=== PATIENT | male | born 1990 | race Caucasian/White ===

== ENCOUNTER 2020-08-08 08:28 | Outpatient (REF) | payer OTHER, SELFPAY | END 2020-08-08 08:29 | disposition home or self-care (01) | LOC: HO.LAB 08:28 | PROVIDERS: Visit Provider Internal Medicine | DX: Z20.828 Contact with and (suspected) exposure to other viral communicable diseases (principal) | CPT/HCPCS: C9803; U0003 ==

== ENCOUNTER 2021-04-30 07:02 | Emergency (ER) | payer OTHER, SELFPAY ==
[2021-04-30 07:15] VITALS: BP 144/77; PULSE 63; RESP 16; TEMP 36.1; O2SAT 98; BMI 25.2
--- NOTE | 2021-04-30 07:46 | ED_ITS ---
HPI - Wound/Laceration General Chief Complaint: Wound/Laceration Stated Complaint: lt hand laceration Time Seen by Provider: 04/30/21 07:34 Source: patient Mode of arrival: ambulatory Limitations: no limitations History of Present Illness HPI narrative: This is a 50 years old male presented to the ED with the laceration on the left hand, he states that was doing renovation in the house and cut himself with mirrow Onset (ago): hour(s) (1) Location: other (left hand) Place: home Patient tetanus UTD: No Context: accidental Associated symptoms: none Related Data Allergies Allergy/AdvReac Type Severity Reaction Status Date / Time SEASONAL ALLERGIES Allergy Unknown ITCHY EYES Uncoded 05/19/20 19:31 Review of Systems Review of Systems: Yes all other systems are reviewed and are negative Constitutional: Constitutional: Reports no additional constitutional complaints Cardiovascular: Cardiovascular: Reports no additional cardiovascular complaints Respiratory: Respiratory: Reports no additional respiratory complaints Gastrointestinal: Gastrointestinal: Reports no additional gastrointestinal complaints Neurologic: Reports system reviewed and no additional complaints, except as documented PMFSH Past Medical History Attestation statement: The following information was validated with the patient. Social History Social History Advance Directives: No Advance Directives Information Provided: No Physical Exam Vital Signs: Vital Signs: Last Vital Signs Temp 97 F 04/30/21 07:15 Pulse 63 04/30/21 07:15 Resp 16 04/30/21 07:15 BP 144/77 H 04/30/21 07:15 Pulse Ox 98 04/30/21 07:15 Body Mass Index 25.2 Const: General: cooperative and healthy appearing Orientation/consciousness: oriented to person, oriented to place, oriented to time and patient oriented x3 HENMT: Other: wnl Neck: Neck: Yes normal visual inspection and Yes full ROM Chest: Chest palpation & inspection: normal inspection of the chest Resp: Effort & Inspection: normal respiratory effort and able to speak in complete sentences Auscultation: clear to auscultation bilaterally Cardio: Jugular venous distension: no JVD Rate: regular rate Rhythm: reg ular rhythm GI: Inspection: Yes normal to inspection Palpation (GI): Soft to palpation, not firm, nontender, no guarding and not rigid Neuro: Other: Examination of the left tender shows a 3 cm laceration in the left ulnar aspect,full ROM,no deficit General: oriented to person, oriented to place, oriented to time and patient oriented x3 Cranial nerves: Yes CN's II- XII intact bilaterally Cognition (Neuro): normal cognition Extrem: Other: There is a 3 cm laceration in the left hand localized in the ulnar aspect, he has full range of motion and he has no deficit in strength or sensation the wound appear clean superficial Procedures Laceration Laceration 1: Site: hand Side (If applicable): left Size (cm): 3 Description: linear Depth: simple, single layer Local Anesthetic: lidocaine 1% Amount of anesthesia used (mL): 1 Pre-repair: wound explored Skin layer closed with: nylon Size (cm): 4-0 Number of sutures: 3 Technique: simple, interrupted Technique: simple, interrupted Tendon layer closed with: nylon Discharge Plan Discharge Clinical Impression: Laceration, Laceration of hand Patient Disposition: Home, Self-Care Instructions: Laceration (ED) Additional Instructions: This stitches need to come out in about 7-10 days you could either go to you see your primary care physician or return to the ED Referrals: Jean Marie Romero MD [Primary Care Provider] - 10 days Interventions: ED Discharge Assessment Last Done: 04/30/21 08:24 Discharge Date/Time: 04/30/21 08:25
[2021-04-30] MEDS: Lidocaine HCl 1 % MPF 5 ML VIAL SUBCUT (08:15)
[2021-04-30] MEDS: Diphth,Pertus(ACell),Tet Adult 0.5 ML SYRINGE IM (08:16)
== END 2021-04-30 08:25 | disposition home or self-care (01) ==
PROVIDERS: Emergency Provider Emergency Medicine; PCP Internal Medicine
DX: S61.412A Laceration without foreign body of left hand, initial encounter (principal); M79.642 Pain in left hand; Y28.9XXA Contact with unspecified sharp object, undetermined intent, initial encounter; Y93.9 Activity, unspecified; Y92.9 Unspecified place or not applicable; Y99.9 Unspecified external cause status
CPT/HCPCS: 12002; 90471; 90715; 99283; 99284

== ENCOUNTER 2022-10-20 22:21 | Observation (INO) | payer OTHER, SELFPAY ==
--- NOTE | ~2022-10-20 | CT_ITS ---
EXAMINATION: CT ANGIOGRAM CHEST CLINICAL INFORMATION: Mid chest pain. Elevated troponin. COMPARISON: None TECHNIQUE: Multiple axial images were obtained through the chest after the administration of 65 mL of Omnipaque 350 intravenous contrast. Extensive vascular post-processing including two-dimensional and three-dimensional reformatted images were created and reviewed on an independent workstation. This CT examination was performed using dose optimization techniques as appropriate, variously including the following: *Automated exposure control *Adjustment of mA and/or kV according to patient size (this includes techniques or standardized protocols for targeted exams where dose is matched to indication/reason for exam; i.e. extremities or head) *Use of iterative reconstruction technique DLP: 340 mGy-cm FINDINGS: Vascular: 1. Normal caliber ascending thoracic aorta. No dissection. Motion limits evaluation of the coronary arteries. There is likely normal origin. 2. Normal caliber aortic arch without dissection. 3 vessel branching configuration. 3. Normal caliber descending thoracic aorta. No dissection. 4. The visualized abdominal aorta is normal. Normal appearance of the celiac axis and superior mesenteric artery. The renal arteries are patent. 5. Although not tailored for evaluation of the pulmonary arteries, no central or lobar pulmonary embolism. Nonvascular: The central airways are patent. Dependent atelectasis. No dense consolidation. No pleural effusion or pneumothorax. No pulmonary nodules. Normal heart size. No pericardial effusion. No mediastinal lymphadenopathy. Normal thyroid gland. No axillary lymphadenopathy or chest wall mass. The visualized portion of the upper abdomen shows no acute abnormality. No acute or suspicious osseous abnormality. CT/CT angio chest aorta IMPRESSION: 1. No acute vascular abnormality. No dissection. 2. No acute pulmonary finding. Fleischner guidelines were followed.
[2022-10-20 22:25] VITALS: BP 138/79; PULSE 84; RESP 16; TEMP 37.1; O2SAT 98; BMI 28.4
--- NOTE | 2022-10-20 22:30 | ECG_ITS ---
Test Reason : chest pain Blood Pressure : / mmHG Vent. Rate : 071 BPM Atrial Rate : 071 BPM P-R Int : 152 ms QRS Dur : 088 ms QT Int : 368 ms P-R-T Axes : 051 030 059 degrees QTc Int : 399 ms Normal sinus rhythm Normal ECG No previous ECGs available Referred By: Generic ED Physician Electronically Signed By:Bruce Hernandez
[2022-10-20 22:48] LABS: MANUAL DIFF FLAG NO
[2022-10-20 22:49] LABS: Basophils Percent Auto 0.1 % (0-2); Eosinophils Absolute Auto 0.1 X10*3/uL (0.0-0.4); Eosinophils Percent Auto 0.9 % (0-4); Hematocrit 40.8 % (42.0-52.0); Imm Gran Abs Auto 0.03 X10*3/uL (0.00-0.03); Imm Gran Pct Auto 0.3 % (0.0-0.4); Lymphocytes Absolute Auto 1.6 X10*3/uL (1.2-4.9); Lymphocytes Percent Auto 17.3 % (20-40); Mean Corpuscular HGB Conc 34.3 g/dl (31.0-36.0); Mean Corpuscular Hemoglobin 29.5 pg (27.0-33.0); Mean Corpuscular Volume 86.1 fL (80.0-98.0); Mean Platelet Volume 9.6 fL (9.4-12.4); Monocytes Absolute Auto 1.1 X10*3/uL (0.1-1.2); Monocytes Percent Auto 12.2 % (2-11); Neutrophils Absolute Auto 6.4 x10*3/uL (2.0-8.3); Neutrophils Percent Auto 69.2 % (45-73); Platelet Count 269 X10*3/uL (160-400); Red Blood Count 4.74 X10*6/uL (4.60-5.80); Red Cell Distribution Width 12.2 % (11.0-16.0); White Blood Count 9.2 X10*3/uL (4.8-10.8)
[2022-10-20 23:03] LABS: Anion Gap 16 (12-20); Blood Urea Nitrogen 13 mg/dL (9-16); Carbon Dioxide 26 mmol/L (22-29); Chloride 100 mmol/L (96-108); Creatinine Clr Calc Pharmacy 126.5; Estimated Glomerular Filt Rate > 60; Glucose Random 113 mg/dL (60-115); Potassium 4.5 mmol/L (3.3-5.1); Sodium 137 mmol/L (135-145)
--- NOTE | 2022-10-20 23:04 | ED_ITS ---
HPI - Chest Pain General Chief Complaint: Chest Pain Stated Complaint: chest pain Time Seen by Provider: 10/20/22 22:51 Source: patient Mode of arrival: ambulatory Limitations: no limitations History of Present Illness HPI narrative: Patient is 31 years old with no significant past medical history nonsmoker been sick with nausea vomiting for last few days vomited 2 times yesterday time went to bed woke up in sleep at 01:00 with sharp chest pain in mid chest lasted for an hour or so then went to bed no shortness of breath no diaphoresis no abdominal pain again at 19:00 patient noticed similar sharp pain localized in midsternum increases on deep breaths and lying flat, on arrival patient's blood pressure was 138/79 pulse rate 84 saturating 98% on room air EKG was normal sinus rhythm, normal EKG no significant family history of coronary artery disease Related Data Allergies Allergy/AdvReac Type Severity Reaction Status Date / Time SEASONAL ALLERGIES Allergy Unknown ITCHY EYES Uncoded 10/21/22 02:39 Review of Systems Review of Systems: Yes all other systems are reviewed and are negative [facility] Social History Social History Patient Tobacco Use Status: Never used Tobacco Smoked in Last 30 Days: No Use of substances other than those prescribed or required for medical reasons: No Advance Directives: No Advance Directives Information Provided: No Nutrition Risks: No Nutritional Risk Physical Exam Vital Signs: Vital Signs: Last Vital Signs Temp 97.9 F 10/21/22 06:21 Pulse 63 10/21/22 06:21 Resp 18 10/21/22 06:21 BP 103/62 10/21/22 06:21 Pulse Ox 96 10/21/22 06:21 O2 Del Method 10/21/22 06:21 BMI result Body Mass Index 28.4 Appearance: Alert. Oriented X3. No acute distress. Eyes: No pallor or icterus ENT: Pharynx normal. Oral Mucosa moist Neck: Normal inspection. Neck supple. CVS: Normal heart rate and rhythm. Pulses normal. No pericardial rub Respiratory: No respiratory distress. Equal air entry bilateral, no wheezing/rales/rhonchi Abdomen: Soft and nontender. Bowel sounds are present, no mass palpable, no CVA tenderness Skin: Skin warm and dry. Normal skin color. Normal skin turgor. Extremities: No lower extremity edema. No calf tenderness Neuro: Oriented X 3. No motor deficit. No sensory deficit.No cerebellar signs , cranial nerves II-XII intact Medications Administered Generic Name Dose Route Start Last Admin Trade Name Alyse PRN Reason Stop Dose Admin Enoxaparin Sodium 40 mg 10/21/22 02:45 10/21/22 03:03 Enoxaparin Sodium 40 Mg/0.4 Ml Syringe SUBCUT Not Given DAILY@0600 KARELY Ibuprofen 600 mg 10/21/22 02:45 10/21/22 03:02 Ibuprofen 600 Mg Tablet PO 600 mg Q8H [facility] Administration Discontinued Medications Generic Name Dose Route Start Last Admin Trade Name Alyse PRN Reason Stop Dose Admin Al Hydroxide/Mg Hydroxide 30 ml 10/20/22 23:05 10/20/22 23:24 Magnesium Hydrox/Alum Hydrox 30 Ml Oral.Susp PO 10/20/22 23:06 30 ml ONCE ONE Administration Colchicine 0.6 mg 10/21/22 01:51 10/21/22 02:36 Colchicine 0.6 Mg Tablet PO 10/21/22 01:52 0.6 mg ONCE ONE Administration Colchicine 0.6 mg 10/21/22 02:42 10/21/22 03:51 Colchicine 0.6 Mg Tablet PO 10/21/22 02:43 0.6 mg ONCE ONE Administration Iohexol 65 ml 10/21/22 00:31 10/21/22 00:41 Iohexol 350 Mg/Ml 100 Ml Infus..Btl IV 10/21/22 00:32 65 ml ONCE ONE Administration Ketorolac Tromethamine 30 mg 10/21/22 01:51 10/21/22 02:18 Ketorolac Tromethamine 30 Mg/Ml Vial IVPUSH 10/21/22 01:52 30 mg ONCE ONE Administration Lidocaine HCl 15 ml 10/20/22 23:05 10/20/22 23:24 Lidocaine Hcl Viscous 2 % 15 Ml Solution MUCOUS MEM 10/20/22 23:06 15 ml ONCE ONE Administration Nitroglycerin 0.5 inch 10/21/22 00:17 10/21/22 00:23 Nitroglycerin 2 % Oint 1 Gm Packet TRANSDERMA 10/21/22 00:18 0.5 inch ONCE ONE Administration Medical Decision Making Medical Decision Making MDM Narrative: Patient's heart score of 0 / NM depression atypical chest pain clinically pericardial myocarditis. Lab workup showed significant elevation of high sensitive troponin to 1341 patient chest pain get worse on lying flat gets better on sitting likely pericarditis/myocarditis l. Will do CT chest to rule out any vascular problem/esophageal rupture . [address] Hernandez agreed for treating patient has pericarditis/myocarditis and sent and colchicine will be seen in the a.m. no need to transfer patient to [facility] said Differential Diagnosis Pericarditis/myocarditis/non-STEMI/esophageal rupture/aortic dissection/AMI Consult Healthcare Provider Management of the patient was discussed with: Hospitalist Lab Data [facility] Lab Attestation statement: I reviewed the patient's lab results. 10/20/22 22:41 10/20/22 22:41 Labs: Lab Results 10/20/22 10/20/22 10/20/22 Range/Units 22:41 22:41 22:41 WBC 9.2 (4.8-10.8) X10*3/uL RBC 4.74 (4.60-5.80) X10*6/uL Hgb 14.0 (14.0-18.0) g/dl Hct 40.8 L (42.0-52.0) % MCV 86.1 (80.0-98.0) fL MCH 29.5 (27.0-33.0) pg MCHC 34.3 (31.0-36.0) g/dl RDW 12.2 (11.0-16.0) % Plt Count 269 (160-400) X10*3/uL MPV 9.6 (9.4-12.4) fL Immature Gran % (Auto) 0.3 (0.0-0.4) % Neut % (Auto) 69.2 (45-73) % Lymph % (Auto) 17.3 L (20-40) % Gove % (Auto) 12.2 H (2-11) % Eos % (Auto) 0.9 (0-4) % Baso % (Auto) 0.1 (0-2) % Lymph # (Auto) 1.6 (1.2-4.9) X10*3/uL Gove # (Auto) 1.1 (0.1-1.2) X10*3/uL Eos # (Auto) 0.1 (0.0-0.4) X10*3/uL Baso # (Auto) 0.0 (0.0-0.2) X10*3/uL Abs Immat Gran (auto) 0.03 (0.00-0.03) X10*3/uL Absolute Neuts (auto) 6.4 (2.0-8.3) x10*3/uL Absolute Nucleated RBC 0.000 (0.0-0.012) X10*3/uL Nucleated RBC % (auto) 0.0 (0.0-0.2) /100WBC ESR (0-15) MM/HR PT (10.0-13.1) SEC INR (0.9-1.1) APTT (26.0-36.4) SEC Sodium 137 (135-145) mmol/L Potassium 4.5 (3.3-5.1) mmol/L Chloride 100 (96-108) mmol/L Carbon Dioxide 26 (22-29) mmol/L Anion Gap 16 (12-20) BUN 13 (9-16) mg/dL Creatinine 0.84 (0.5-1.4) mg/dL Estim Creat Clear Calc 126.5 Estimated GFR > 60 Random Glucose 113 (60-115) mg/dL Calcium 9.0 (8.4-10.2) mg/dL Total Creatine Kinase 206 H (38-174) U/L Troponin I High Sens 1341.0 H* (<3.5-35.0) ng/L C-Reactive Protein 9.52 H (< or = 0.50) mg/dL Urine Color Urine Appearance Urine pH (5.0-9.0) Ur Specific Pateros (1.005-1.025) Urine Protein (Neg-Trace) mg/dL Urine Glucose (UA) (Negative) mg/dL Urine Ketones (Negative) mg/dL Urine Blood (Negative) Urine Nitrite (Negative) Ur Leukocyte Esterase (Negative) Urine RBC (0-2) /HPF Urine WBC (0-5) /HPF Ur Squamous Epith Cells (0-2) /HPF Urine Bacteria (None Seen) Hyaline Casts (0-2) /LPF Urine Opiates Screen (Not Detect) Urine Fentanyl Screen (Not Detect) Ur Barbiturates Screen (Not Detect) Ur Phencyclidine Scrn (Not Detect) Ur Amphetamines Screen (Not Detect) U Benzodiazepines Scrn (Not Detect) Urine Cocaine Screen (Not Detect) U Marijuana (THC) Screen (Not Detect) Influenza Type A (PCR) (Negative) Influenza Type B (PCR) (Negative) RSV RNA Qual (PCR) (Negative) SARS-CoV-2 RNA (RT-PCR) (Negative) 10/20/22 10/20/22 10/20/22 Range/Units 22:41 22:41 23:34 WBC (4.8-10.8) X10*3/uL RBC (4.60-5.80) X10*6/uL Hgb (14.0-18.0) g/dl Hct (42.0-52.0) % MCV (80.0-98.0) fL MCH (27.0-33.0) pg MCHC (31.0-36.0) g/dl RDW (11.0-16.0) % Plt Count (160-400) X10*3/uL MPV (9.4-12.4) fL Immature Gran % (Auto) (0.0-0.4) % Neut % (Auto) (45-73) % Lymph % (Auto) (20-40) % Gove % (Auto) (2-11) % Eos % (Auto) (0-4) % Baso % (Auto) (0-2) % Lymph # (Auto) (1.2-4.9) X10*3/uL Gove # (Auto) (0.1-1.2) X10*3/uL Eos # (Auto) (0.0-0.4) X10*3/uL Baso # (Auto) (0.0-0.2) X10*3/uL Abs Immat Gran (auto) (0.00-0.03) X10*3/uL Absolute Neuts (auto) (2.0-8.3) x10*3/uL Absolute Nucleated RBC (0.0-0.012) X10*3/uL Nucleated RBC % (auto) (0.0-0.2) /100WBC ESR 13 (0-15) MM/HR PT 13.0 (10.0-13.1) SEC INR 1.1 (0.9-1.1) APTT 33.4 (26.0-36.4) SEC Sodium (135-145) mmol/L Potassium (3.3-5.1) mmol/L Chloride (96-108) mmol/L Carbon Dioxide (22-29) mmol/L Anion Gap (12-20) BUN (9-16) mg/dL Creatinine (0.5-1.4) mg/dL Estim Creat Clear Calc Estimated GFR Random Glucose (60-115) mg/dL Calcium (8.4-10.2) mg/dL Total Creatine Kinase (38-174) U/L Troponin I High Sens (<3.5-35.0) ng/L C-Reactive Protein (< or = 0.50) mg/dL Urine Color Urine Appearance Urine pH (5.0-9.0) Ur Specific Pateros (1.005-1.025) Urine Protein (Neg-Trace) mg/dL Urine Glucose (UA) (Negative) mg/dL Urine Ketones (Negative) mg/dL Urine Blood (Negative) Urine Nitrite (Negative) Ur Leukocyte Esterase (Negative) Urine RBC (0-2) /HPF Urine WBC (0-5) /HPF Ur Squamous Epith Cells (0-2) /HPF Urine Bacteria (None Seen) Hyaline Casts (0-2) /LPF Urine Opiates Screen (Not Detect) Urine Fentanyl Screen (Not Detect) Ur Barbiturates Screen (Not Detect) Ur Phencyclidine Scrn (Not Detect) Ur Amphetamines Screen (Not Detect) U Benzodiazepines Scrn (Not Detect) Urine Cocaine Screen (Not Detect) U Marijuana (THC) Screen (Not Detect) Influenza Type A (PCR) NEGATIVE (Negative) Influenza Type B (PCR) NEGATIVE (Negative) RSV RNA Qual (PCR) NEGATIVE (Negative) SARS-CoV-2 RNA (RT-PCR) NEGATIVE (Negative) 10/20/22 10/21/22 10/21/22 Range/Units 23:42 00:27 00:28 WBC (4.8-10.8) X10*3/uL RBC (4.60-5.80) X10*6/uL Hgb (14.0-18.0) g/dl Hct (42.0-52.0) % MCV (80.0-98.0) fL MCH (27.0-33.0) pg MCHC (31.0-36.0) g/dl RDW (11.0-16.0) % Plt Count (160-400) X10*3/uL MPV (9.4-12.4) fL Immature Gran % (Auto) (0.0-0.4) % Neut % (Auto) (45-73) % Lymph % (Auto) (20-40) % Gove % (Auto) (2-11) % Eos % (Auto) (0-4) % Baso % (Auto) (0-2) % Lymph # (Auto) (1.2-4.9) X10*3/uL Gove # (Auto) (0.1-1.2) X10*3/uL Eos # (Auto) (0.0-0.4) X10*3/uL Baso # (Auto) (0.0-0.2) X10*3/uL Abs Immat Gran (auto) (0.00-0.03) X10*3/uL Absolute Neuts (auto) (2.0-8.3) x10*3/uL Absolute Nucleated RBC (0.0-0.012) X10*3/uL Nucleated RBC % (auto) (0.0-0.2) /100WBC ESR (0-15) MM/HR PT (10.0-13.1) SEC INR (0.9-1.1) APTT (26.0-36.4) SEC Sodium (135-145) mmol/L Potassium (3.3-5.1) mmol/L Chloride (96-108) mmol/L Carbon Dioxide (22-29) mmol/L Anion Gap (12-20) BUN (9-16) mg/dL Creatinine (0.5-1.4) mg/dL Estim Creat Clear Calc Estimated GFR Random Glucose (60-115) mg/dL Calcium (8.4-10.2) mg/dL Total Creatine Kinase (38-174) U/L Troponin I High Sens 2047.0 H* D (<3.5-35.0) ng/L C-Reactive Protein (< or = 0.50) mg/dL Urine Color Dark Yellow Urine Appearance Clear Urine pH 6.5 (5.0-9.0) Ur Specific Pateros >= 1.030 H (1.005-1.025) Urine Protein 30 (1+) H (Neg-Trace) mg/dL Urine Glucose (UA) Negative (Negative) mg/dL Urine Ketones 15 (Negative) mg/dL Urine Blood Negative (Negative) Urine Nitrite Negative (Negative) Ur Leukocyte Esterase Negative (Negative) Urine RBC 11-20 H (0-2) /HPF Urine WBC 0-5 (0-5) /HPF Ur Squamous Epith Cells 0-2 (0-2) /HPF Urine Bacteria None Seen (None Seen) Hyaline Casts 0-2 (0-2) /LPF Urine Opiates Screen Not Detected (Not Detect) Urine Fentanyl Screen Not Detected (Not Detect) Ur Barbiturates Screen Not Detected (Not Detect) Ur Phencyclidine Scrn Not Detected (Not Detect) Ur Amphetamines Screen Not Detected (Not Detect) U Benzodiazepines Scrn Not Detected (Not Detect) Urine Cocaine Screen Not Detected (Not Detect) U Marijuana (THC) Screen POSITIVE H (Not Detect) Influenza Type A (PCR) (Negative) Influenza Type B (PCR) (Negative) RSV RNA Qual (PCR) (Negative) SARS-CoV-2 RNA (RT-PCR) (Negative) Independent Interpretation I performed an independent interpretation of an: EKG Interpretation: Normal sinus rhythm heart rate 71 beats per minute normal interval normal axis slight depression of NM interval in lead 2 and elevation in AVR no acute ST changes impression normal EKG Discharge Plan Discharge Clinical Impression: Pericarditis, Myocarditis Patient Disposition: Admitted As Inpatient
[2022-10-20] MEDS: Lidocaine HCl Viscous 2 % 15 ML SOLUTION MUCOUS MEM (23:24)
[2022-10-20] MEDS: Magnesium Hydrox/Alum Hydrox 30 ML ORAL.SUSP PO (23:24)
[2022-10-20 23:27] LABS: Influenza A PCR NEGATIVE (Negative); Influenza B PCR NEGATIVE (Negative); Resp Syncy Virus RNA Qual PCR NEGATIVE (Negative); SARS COV2 PCR INHOUSE NEGATIVE (Negative)
[2022-10-20 23:57] LABS: INTERNATIONAL NORM RATIO 1.1 (0.9-1.1)
[2022-10-20 23:59] LABS: Partial Thromboplastin Time 33.4 SEC (26.0-36.4)
[2022-10-21] VITALS (9 sets, daily range): BP systolic 102–140; BP diastolic 60–88; PULSE 54–81; RESP 12–21; TEMP 36.6–37.4; O2SAT 96–98
--- NOTE | 2022-10-21 | MHC.EDTECH ---
this pct assumed care of pt at 2300 ,vitals sign taken ,pt father at bedside .
[2022-10-21] MEDS: Nitroglycerin 2 % Oint 1 GM Packet 0.5 INCH TRANSDERMA (00:23)
--- NOTE | 2022-10-21 00:29 | MHC.EDTECH ---
pt urine sample collected and sent to lab .
[2022-10-21 00:34] LABS: Appearance Urine Clear; Color Urine Dark Yellow; Glucose Urine UA Negative (Negative); Leukocyte Esterase Urine Negative (Negative); Nitrite Urine Negative (Negative); PH 6.5 (5.0-9.0); Specific Gravity - Urine >= 1.030 (1.005-1.025); UMIC TRIGGER UACC YES; Urine Blood Negative (Negative); Urine Ketones 15 mg/dL (Negative); Urine Protein 30 (1+) mg/dL (Neg-Trace)
[2022-10-21 00:36] LABS: C Reactive Protein 9.52 mg/dL (< or = 0.50)
[2022-10-21] MEDS: iohexoL 350 MG/ML 100 ML INFUS..BTL 65 ML IV (00:41)
[2022-10-21 00:44] LABS: Amphetamine Screen Urine Not Detected (Not Detect); Barbiturates, Urine Not Detected (Not Detect); Benzodiazepines Screen Urine Not Detected (Not Detect); Cannabinoid Screen Urine POSITIVE (Not Detect); Cocaine Screen Urine Not Detected (Not Detect); Fentanyl, urine Not Detected (Not Detect); Opiate Screen Urine Not Detected (Not Detect); Phencyclidine Screen Urine Not Detected (Not Detect)
[2022-10-21 00:46] LABS: Bacteria Urine None Seen (None Seen); Hyaline Casts Urine 0-2 /LPF (0-2); Squamous Epithelial Cell Urine 0-2 /HPF (0-2); WBC Urine 0-5 /HPF (0-5)
[2022-10-21 01:01] LABS: Erythrocyte Sedimentation Rate 13 MM/HR (0-15)
--- NOTE | 2022-10-21 02:01 | MHC.EDTECH ---
0200 rounding done ,vitals sign taken ,pt sitting up in bed ,said he still have some pain ,provider aware .
[2022-10-21] MEDS: Ketorolac Tromethamine 30 MG/ML VIAL IVPUSH ×2 (02:18→10:20)
--- NOTE | 2022-10-21 02:26 | P.HPHOSP_ITS ---
History of Present Illness Date of Service: 10/21/22 Chief Complaint: Chest Pain This is a 32-year-old male with no pertinent past medical history and not on prescription medications who presents to the emergency department for evaluation of chest discomfort. Patient states it started about 01:00 when he was slee ping, 1 day prior to presentation. It got better when he sat up. Throughout the day, it was dull aching and resolved on its own. Around 19:00 last night, he had a similar sharp pain, retrosternal, nonradiating and constant. He was resting during that time. It got worse with deep inspiration and got better when he sat up and with bending forward. Chest pain did not get better with rest and mildly worsened with activity. No relief with nitroglycerin. No history of similar pain in the past. No history of smoking tobacco or IV drug use. States he and his were sick for 2 days prior to the onset of chest pain with nausea/vomiting and diarrhea. No family history of early ACS. Patie nt denies dyspnea, sweating. He denies fever, chills, abdominal pain, changes in urinary bowel habits In the emergency department, troponin was found to be significantly elevated Review of Systems Constitutional: Constitutional: Reports no additional constitutional complaints Cardiovascular: Cardiovascular: Reports chest pain Respiratory: Respiratory: Reports no additional respiratory complaints Gastrointestinal: Gastrointestinal: Reports no additional gastrointestinal complaints Genitourinary: Genitourinary: Reports no additional male genitourinary complaints Musculoskeletal: Musculoskeletal: Reports no additional musculoskeletal complaints Neurologic: Reports system reviewed and no additional complaints, except as documented PMFSH Functional capacity: independent ambulation Pertinent family history: No family history of CAD Social History Smoked in Last 30 Days: No Use of substances other than those prescribed or required for medical reasons: No Advance Directives: No Advance Directives Information Provided: No Meds Allergies Allergy/AdvReac Type Severity Reaction Status Date / Time SEASONAL ALLERGIES Allergy Unknown ITCHY EYES Uncoded 10/21/22 02:39 Physical Exam Vital Signs and Narrative: Vital Signs: Last Vital Signs Temp 98.4 F 10/21/22 01:59 Pulse 80 10/21/22 01:59 Resp 16 10/21/22 01:59 BP 120/82 10/21/22 01:59 Pulse Ox 98 10/21/22 01:59 O2 Del Method 10/21/22 01:59 BMI result Body Mass Index 28.4 Middle-aged male lying in bed in no distress Neck supple, no JVD Regular rate and rhythm, S1-S2 heard Regular breath sounds bilaterally, no wheezing or crackles appreciated Abdomen soft nontender, no guarding, no rigidity Patient is awake, alert and oriented to self, place, time and person ; no focal motor deficit Psych: Normal mood No pedal edema Results Labs 10/20/22 22:41 10/20/22 22:41 Labs: Laboratory Results - last 24 hr 10/20/22 10/20/22 10/20/22 22:41 22:41 22:41 MCV 86.1 MCH 29.5 MCHC 34.3 RDW 12.2 Plt Count 269 MPV 9.6 Immature Gran % (Auto) 0.3 Neut % (Auto) 69.2 Lymph % (Auto) 17.3 L [place] % (Auto) 12.2 H Eos % (Auto) 0.9 Baso % (Auto) 0.1 Lymph # (Auto) 1.6 [place] # (Auto) 1.1 Eos # (Auto) 0.1 Baso # (Auto) 0.0 Abs Immat Gran (auto) 0.03 Absolute Neuts (auto) 6.4 Absolute Nucleated RBC 0.000 Nucleated RBC % (auto) 0.0 ESR PT INR APTT Anion Gap 16 Estim Creat Clear Calc 126.5 Estimated GFR > 60 Random Glucose 113 Calcium 9.0 Total Creatine Kinase 206 H Troponin I High Sens 1341.0 H* C-Reactive Protein 9.52 H Urine Color Urine Appearance Urine pH Ur Specific [place] Urine Protein Urine Glucose (UA) Urine Ketones Urine Blood Urine Nitrite Ur Leukocyte Esterase Urine RBC Urine WBC Ur Squamous Epith Cells Urine Bacteria Hyaline Casts Urine Opiates Screen Urine Fentanyl Screen Ur Barbiturates Screen Ur Phencyclidine Scrn Ur Amphetamines Screen U Benzodiazepines Scrn Urine Cocaine Screen U Marijuana (THC) Screen Influenza Type A (PCR) Influenza Type B (PCR) RSV RNA Qual (PCR) SARS-CoV-2 RNA (RT-PCR) 10/20/22 10/20/22 10/20/22 22:41 22:41 23:34 MCV MCH MCHC RDW Plt Count MPV Immature Gran % (Auto) Neut % (Auto) Lymph % (Auto) [place] % (Auto) Eos % (Auto) Baso % (Auto) Lymph # (Auto) [place] # (Auto) Eos # (Auto) Baso # (Auto) Abs Immat Gran (auto) Absolute Neuts (auto) Absolute Nucleated RBC Nucleated RBC % (auto) ESR 13 PT 13.0 INR 1.1 APTT 33.4 Anion Gap Estim Creat Clear Calc Estimated GFR Random Glucose Calcium Total Creatine Kinase Troponin I High Sens C-Reactive Protein Urine Color Urine Appearance Urine pH Ur Specific [place] Urine Protein Urine Glucose (UA) Urine Ketones Urine Blood Urine Nitrite Ur Leukocyte Esterase Urine RBC Urine WBC Ur Squamous Epith Cells Urine Bacteria Hyaline Casts Urine Opiates Screen Urine Fentanyl Screen Ur Barbiturates Screen Ur Phencyclidine Scrn Ur Amphetamines Screen U Benzodiazepines Scrn Urine Cocaine Screen U Marijuana (THC) Screen Influenza Type A (PCR) NEGATIVE Influenza Type B (PCR) NEGATIVE RSV RNA Qual (PCR) NEGATIVE SARS-CoV-2 RNA (RT-PCR) NEGATIVE 10/20/22 10/21/22 10/21/22 23:42 00:27 00:28 MCV MCH MCHC RDW Plt Count MPV Immature Gran % (Auto) Neut % (Auto) Lymph % (Auto) [place] % (Auto) Eos % (Auto) Baso % (Auto) Lymph # (Auto) [place] # (Auto) Eos # (Auto) Baso # (Auto) Abs Immat Gran (auto) Absolute Neuts (auto) Absolute Nucleated RBC Nucleated RBC % (auto) ESR PT INR APTT Anion Gap Estim Creat Clear Calc Estimated GFR Random Glucose Calcium Total Creatine Kinase Troponin I High Sens 2047.0 H* D C-Reactive Protein Urine Color Dark Yellow Urine Appearance Clear Urine pH 6.5 Ur Specific [place] >= 1.030 H Urine Protein 30 (1+) H Urine Glucose (UA) Negative Urine Ketones 15 Urine Blood Negative Urine Nitrite Negative Ur Leukocyte Esterase Negative Urine RBC 11-20 H Urine WBC 0-5 Ur Squamous Epith Cells 0-2 Urine Bacteria None Seen Hyaline Casts 0-2 Urine Opiates Screen Not Detected Urine Fentanyl Screen Not Detected Ur Barbiturates Screen Not Detected Ur Phencyclidine Scrn Not Detected Ur Amphetamines Screen Not Detected U Benzodiazepines Scrn Not Detected Urine Cocaine Screen Not Detected U Marijuana (THC) Screen POSITIVE H Influenza Type A (PCR) Influenza Type B (PCR) RSV RNA Qual (PCR) SARS-CoV-2 RNA (RT-PCR) Imaging Radiologist's Impressions: Impressions Chest CTA 10/21/22 00:50 IMPRESSION: 1. No acute vascular abnormality. No dissection. 2. No acute pulmonary finding. Fleischner guidelines were followed. Assessment and Plan (1) Pericarditis: Status: Acute Plan This is a 32-year-old male with no pertinent past medical history and not on prescription medications who presents to the emergency department for evaluation of chest discomfort. #. Chest pain with elevated troponin: Cardiology was consulted from the ER and there is a concern for pericarditis. Patient given colchicine and ketorolac as per Cardiology recommendations. Will obtain echocardiogram. Appreciate Cardiology assistance. DVT prophylaxis: Lovenox 40 mg daily Full code Regular diet Time Spent With Patient Time: Total time managing care of this patient today ____ minutes. Quality Stroke Does the patient have a stroke diagnosis?: No VTE Prior VTE?: No VTE Risk Level:: Medical - low VTE Device Contraindication: Treatment Not Indicated VTE Drug Contraindication: N/A - Med Ordered
[2022-10-21] MEDS: Colchicine 0.6 MG TABLET PO ×2 (02:36→03:51)
--- NOTE | 2022-10-21 02:41 | PC.NURSE ---
med rec complete; pt does not take any meds at home
[2022-10-21] MEDS: Ibuprofen 600 MG TABLET PO (03:02)
--- NOTE | 2022-10-21 03:53 | PC.NURSE ---
unable to scan barcode for colchicine not able to scan (barcode faded)
[2022-10-21 05:47] LABS: MANUAL DIFF FLAG NO
[2022-10-21 05:48] LABS: Basophils Percent Auto 0.1 % (0-2); Eosinophils Absolute Auto 0.1 X10*3/uL (0.0-0.4); Eosinophils Percent Auto 1.6 % (0-4); Hematocrit 39.8 % (42.0-52.0); Hemoglobin 13.5 g/dl (14.0-18.0); Imm Gran Abs Auto 0.02 X10*3/uL (0.00-0.03); Imm Gran Pct Auto 0.3 % (0.0-0.4); Lymphocytes Percent Auto 26.2 % (20-40); Mean Corpuscular HGB Conc 33.9 g/dl (31.0-36.0); Mean Corpuscular Hemoglobin 29.3 pg (27.0-33.0); Mean Corpuscular Volume 86.3 fL (80.0-98.0); Mean Platelet Volume 9.9 fL (9.4-12.4); Monocytes Percent Auto 13.9 % (2-11); Neutrophils Absolute Auto 4.3 x10*3/uL (2.0-8.3); Neutrophils Percent Auto 57.9 % (45-73); Platelet Count 249 X10*3/uL (160-400); Red Blood Count 4.61 X10*6/uL (4.60-5.80); Red Cell Distribution Width 12.3 % (11.0-16.0); White Blood Count 7.5 X10*3/uL (4.8-10.8)
[2022-10-21 06:06] LABS: Anion Gap 14 (12-20); Blood Urea Nitrogen 13 mg/dL (9-16); Calcium 9.1 mg/dL (8.4-10.2); Carbon Dioxide 27 mmol/L (22-29); Chloride 101 mmol/L (96-108); Creatinine Clr Calc Pharmacy 125.3; Estimated Glomerular Filt Rate > 60; Glucose Random 97 mg/dL (60-115); Sodium 138 mmol/L (135-145)
[2022-10-21 06:18] LABS: Troponin-I High Sensitivity > 3600.0 ng/L (<3.5-35.0)
--- NOTE | 2022-10-21 06:19 | PC.NURSE ---
critical results called in by Jimmy from lab >3600 trop; hospitalist notified priority tiger text
--- NOTE | 2022-10-21 06:37 | PC.NURSE ---
pt sleeping, no apparent distress
--- NOTE | 2022-10-21 08:17 | PHA.MEDREC ---
Pharmacy Consult ? Medication Reconciliation Pharmacy has completed the medication reconciliation. Patient claims no home medications.
--- NOTE | 2022-10-21 08:28 | ECG_ITS ---
Test Reason : chest pain Blood Pressure : / mmHG Vent. Rate : 058 BPM Atrial Rate : 058 BPM P-R Int : 154 ms QRS Dur : 102 ms QT Int : 398 ms P-R-T Axes : 009 052 056 degrees QTc Int : [address] elevations present - consider pericarditis. Abnormal ECG When compared with ECG of 20-OCT-2022 22:33, Acute pericarditis present Referred By: Yousuf Amezcua Electronically Signed By:Bruce Hernandez
[2022-10-21] MEDS: 0.9 % Sodium Chloride Flush 3 ML SYRINGE IVFLUSH (08:44)
--- NOTE | 2022-10-21 09:07 | PC.NURSE ---
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 for the past two days he has had chest pain that waxes and wanes, pt reporting the same now. Dr. Merritt made aware. repeat EKG ordered and obtained, image sent to Dr. Merritt and Dr. Hernandez. pts VSS, he reports chest pain a /10. Dr. Ac at bedside at this time using U/S to, dr merritt also at bedside. verbal order for pt to be NPO, hold Colcrys at this time.
--- NOTE | 2022-10-21 09:45 | PC.NURSE ---
Dr. Hernandez at bedside
--- NOTE | 2022-10-21 09:47 | P.CONCA_ITS ---
History of Present Illness History of Present Illness Date of Service: 10/21/22 Requesting physician: Keith Calhoun Chief complaint: chest pain, myocarditis. Narrative: Pleasant 32 year gentleman presenting with chest discomfort. He has been experiencing sharp chest pain since Saturday. He said he had a viral illness which effected his family and he was getting chills and having diarrhea. Saturday around 01:00 he woke up with sharp chest pain which gradually improved but around 07:00 o'clock he had worsening of chest discomfort and immensely he came to the emergency department. His EKG initially showed [place] depressions which evolved into ST elevations more consistent with acute pericarditis. His initial troponins were 1341, 2047 and 3rd 1 is more than 3600. Echocardiography performed at bedside which showed overall normal function without any obvious wall motion abnormalities, I could not see the LV apex very well. He is saying with Toradol his chest pain is improving but he has a dull ache in his chest still present. The pain is worse when he laid back worse is sitting up. PMFSH Past Medical History Functional capacity: independent ambulation Social History Social History Patient Tobacco Use Status: Never used Tobacco Smoked in Last 30 Days: No Use of substances other than those prescribed or required for medical reasons: No Advance Directives: No Advance Directives Information Provided: No Nutrition Risks: No Nutritional Risk Meds Allergies Allergy/AdvReac Type Severity Reaction Status Date / Time SEASONAL ALLERGIES Allergy Unknown ITCHY EYES Uncoded 10/21/22 02:39 Active Medications: Current Medications Colchicine (Colchicine 0.6 Mg Tablet) 0.6 mg PO BID [facility] Last Admin: 10/21/22 08:50 Dose: Not Given Enoxaparin Sodium (Enoxaparin Sodium 40 Mg/0.4 Ml Syringe) 40 mg SUBCUT DAILY@0600 [facility] Last Admin: 10/21/22 03:03 Dose: Not Given Ibuprofen (Ibuprofen 600 Mg Tablet) 600 mg PO Q8H [facility] Last Admin: 10/21/22 09:43 Dose: Not Given Sodium Chloride (0.9 % Sodium Chloride Flush 3 Ml Syringe) 3 ml IVFLUSH QSHIFT [facility] Last Admin: 10/21/22 08:44 Dose: 3 ml Physical Exam Vital Signs: Vital Signs: Last Vital Signs Temp 97.9 F 10/21/22 06:21 Pulse 81 10/21/22 09:04 Resp 21 H 10/21/22 09:04 BP 140/88 H 10/21/22 09:04 Pulse Ox 96 10/21/22 09:04 O2 Del Method 10/21/22 09:04 BMI result Body Mass Index 28.4 GENERAL APPEARANCE: in no acute distress, pleasant. NECK: no carotid bruit, no jugular venous distention. SKIN: no suspicious lesions, warm and dry. HEART: no murmurs, regular rate and rhythm. LUNGS: clear to auscultation bilaterally. ABDOMEN: soft, nontender. EXTREMITIES: no edema. PERIPHERAL PULSES: equal. NEUROLOGIC: No gross deficits, AAO X 3 Objective Labs and Meds 10/21/22 05:36 10/21/22 05:36 Lab results: Laboratory Results - last 24 hr 10/20/22 10/20/22 10/20/22 22:41 22:41 22:41 WBC 9.2 RBC 4.74 Hgb 14.0 Hct 40.8 L MCV 86.1 MCH 29.5 MCHC 34.3 RDW 12.2 Plt Count 269 MPV 9.6 Immature Gran % (Auto) 0.3 Neut % (Auto) 69.2 Lymph % (Auto) 17.3 L [place] % (Auto) 12.2 H Eos % (Auto) 0.9 Baso % (Auto) 0.1 Lymph # (Auto) 1.6 [place] # (Auto) 1.1 Eos # (Auto) 0.1 Baso # (Auto) 0.0 Abs Immat Gran (auto) 0.03 Absolute Neuts (auto) 6.4 Absolute Nucleated RBC 0.000 Nucleated RBC % (auto) 0.0 ESR PT INR APTT Sodium 137 Potassium 4.5 Chloride 100 Carbon Dioxide 26 Anion Gap 16 BUN 13 Creatinine 0.84 Estim Creat Clear Calc 126.5 Estimated GFR > 60 Random Glucose 113 Calcium 9.0 Total Creatine Kinase 206 H Troponin I High Sens 1341.0 H* C-Reactive Protein 9.52 H Urine Color Urine Appearance Urine pH Ur Specific [place] Urine Protein Urine Glucose (UA) Urine Ketones Urine Blood Urine Nitrite Ur Leukocyte Esterase Urine RBC Urine WBC Ur Squamous Epith Cells Urine Bacteria Hyaline Casts Urine Opiates Screen Urine Fentanyl Screen Ur Barbiturates Screen Ur Phencyclidine Scrn Ur Amphetamines Screen U Benzodiazepines Scrn Urine Cocaine Screen U Marijuana (THC) Screen Influenza Type A (PCR) Influenza Type B (PCR) RSV RNA Qual (PCR) SARS-CoV-2 RNA (RT-PCR) 10/20/22 10/20/22 10/20/22 22:41 22:41 23:34 WBC RBC Hgb Hct MCV MCH MCHC RDW Plt Count MPV Immature Gran % (Auto) Neut % (Auto) Lymph % (Auto) [place] % (Auto) Eos % (Auto) Baso % (Auto) Lymph # (Auto) [place] # (Auto) Eos # (Auto) Baso # (Auto) Abs Immat Gran (auto) Absolute Neuts (auto) Absolute Nucleated RBC Nucleated RBC % (auto) ESR 13 PT 13.0 INR 1.1 APTT 33.4 Sodium Potassium Chloride Carbon Dioxide Anion Gap BUN Creatinine Estim Creat Clear Calc Estimated GFR Random Glucose Calcium Total Creatine Kinase Troponin I High Sens C-Reactive Protein Urine Color Urine Appearance Urine pH Ur Specific [place] Urine Protein Urine Glucose (UA) Urine Ketones Urine Blood Urine Nitrite Ur Leukocyte Esterase Urine RBC Urine WBC Ur Squamous Epith Cells Urine Bacteria Hyaline Casts Urine Opiates Screen Urine Fentanyl Screen Ur Barbiturates Screen Ur Phencyclidine Scrn Ur Amphetamines Screen U Benzodiazepines Scrn Urine Cocaine Screen U Marijuana (THC) Screen Influenza Type A (PCR) NEGATIVE Influenza Type B (PCR) NEGATIVE RSV RNA Qual (PCR) NEGATIVE SARS-CoV-2 RNA (RT-PCR) NEGATIVE 10/20/22 10/21/22 10/21/22 23:42 00:27 00:28 WBC RBC Hgb Hct MCV MCH MCHC RDW Plt Count MPV Immature Gran % (Auto) Neut % (Auto) Lymph % (Auto) [place] % (Auto) Eos % (Auto) Baso % (Auto) Lymph # (Auto) [place] # (Auto) Eos # (Auto) Baso # (Auto) Abs Immat Gran (auto) Absolute Neuts (auto) Absolute Nucleated RBC Nucleated RBC % (auto) ESR PT INR APTT Sodium Potassium Chloride Carbon Dioxide Anion Gap BUN Creatinine Estim Creat Clear Calc Estimated GFR Random Glucose Calcium Total Creatine Kinase Troponin I High Sens 2047.0 H* D C-Reactive Protein Urine Color Dark Yellow Urine Appearance Clear Urine pH 6.5 Ur Specific [place] >= 1.030 H Urine Protein 30 (1+) H Urine Glucose (UA) Negative Urine Ketones 15 Urine Blood Negative Urine Nitrite Negative Ur Leukocyte Esterase Negative Urine RBC 11-20 H Urine WBC 0-5 Ur Squamous Epith Cells 0-2 Urine Bacteria None Seen Hyaline Casts 0-2 Urine Opiates Screen Not Detected Urine Fentanyl Screen Not Detected Ur Barbiturates Screen Not Detected Ur Phencyclidine Scrn Not Detected Ur Amphetamines Screen Not Detected U Benzodiazepines Scrn Not Detected Urine Cocaine Screen Not Detected U Marijuana (THC) Screen POSITIVE H Influenza Type A (PCR) Influenza Type B (PCR) RSV RNA Qual (PCR) SARS-CoV-2 RNA (RT-PCR) 10/21/22 10/21/22 10/21/22 05:36 05:36 05:36 WBC 7.5 RBC 4.61 Hgb 13.5 L Hct 39.8 L MCV 86.3 MCH 29.3 MCHC 33.9 RDW 12.3 Plt Count 249 MPV 9.9 Immature Gran % (Auto) 0.3 Neut % (Auto) 57.9 Lymph % (Auto) 26.2 [place] % (Auto) 13.9 H Eos % (Auto) 1.6 Baso % (Auto) 0.1 Lymph # (Auto) 2.0 [place] # (Auto) 1.0 Eos # (Auto) 0.1 Baso # (Auto) 0.0 Abs Immat Gran (auto) 0.02 Absolute Neuts (auto) 4.3 Absolute Nucleated RBC 0.000 Nucleated RBC % (auto) 0.0 ESR PT INR APTT Sodium 138 Potassium 4.0 Chloride 101 Carbon Dioxide 27 Anion Gap 14 BUN 13 Creatinine 0.84 Estim Creat Clear Calc 125.3 Estimated GFR > 60 Random Glucose 97 Calcium 9.1 Total Creatine Kinase Troponin I High Sens > 3600.0 H* D C-Reactive Protein Urine Color Urine Appearance Urine pH Ur Specific [place] Urine Protein Urine Glucose (UA) Urine Ketones Urine Blood Urine Nitrite Ur Leukocyte Esterase Urine RBC Urine WBC Ur Squamous Epith Cells Urine Bacteria Hyaline Casts Urine Opiates Screen Urine Fentanyl Screen Ur Barbiturates Screen Ur Phencyclidine Scrn Ur Amphetamines Screen U Benzodiazepines Scrn Urine Cocaine Screen U Marijuana (THC) Screen Influenza Type A (PCR) Influenza Type B (PCR) RSV RNA Qual (PCR) SARS-CoV-2 RNA (RT-PCR) Imaging Radiologist's impression: Impressions Chest CTA 10/21/22 00:50 IMPRESSION: 1. No acute vascular abnormality. No dissection. 2. No acute pulmonary finding. Fleischner guidelines were followed. Assessment and Plan (1) Myocarditis: Status: Acute (2) Pericarditis: Status: Acute Plan 32-year-old gentleman with perimyocarditis/ Ibuprofen and colchicine for pericarditis. His biomarkers are elevated. EKG is consistent with pericarditis. Transferring him to [facility] for coronary CTA and cardiac MRI. Does not have ACS by clinical assessment and does not need heparin drip. Thank you for allowing me to participate in the care of your patient. Please feel free to contact me if you have any questions. Time Spent With Patient Time: Total time managing care of this patient today ____ minutes. Procedures Date of Service Date of Service: 10/21/22
--- NOTE | 2022-10-21 10:14 | PM.DS ---
DS: Providers Provider Date of Service: 10/21/22 Date of admission: 10/21/22 02:45 Primary care physician: Jean Marie Romero MD Consults: 10/21/22 02:40 Consult to Cardiology Routine Consulting Provider: Bruce Hernandez Reason for consultation: ?pericarditis Has provider been notified: Yes DS: Diagnosis Discharge Diagnosis (1) Pericarditis: Status: Acute DS: Summary Hospital Course Hospital Course: Date of Service: 10/21/22 Chief Complaint: Chest Pain This is a 32-year-old male with no pertinent past medical history and not on prescription medications who presents to the emergency department for evaluation of chest discomfort.? Patient states it started about 01:00 when he was sleeping, 1 day prior to presentation.? It got better when he sat up.? Throughout the day, it was dull aching and resolved on its own.? Around 19:00 last night, he had a similar sharp pain, retrosternal, nonradiating and constant.? He was resting during that time.? It got worse with deep inspiration and got better when he sat up and with bending forward.? Chest pain did not get better with rest and mildly worsened with activity.? No relief with nitroglycerin.? No history of similar pain in the past.? No history of smoking tobacco or IV drug use.? States he and his were sick for 2 days prior to the onset of chest pain with nausea/vomiting and diarrhea.? No family history of early ACS.? Patient denies dyspnea, sweating.? He denies fever, chills, abdominal pain, changes in urinary bowel habits In the emergency department, troponin was found to be significantly elevated. 32-year-old male with no pertinent past medical history and not on prescription medications presented to emergency room with chest pain , no history of cocaine use, no family history of coronary artery disease, initial EKG showed no acute ischemic changes, high sensitivity troponin was elevated at 1341 , CTA chest showed no vascular abnormality, no dissection, patient was admitted to [facility] with a diagnosis of pericarditis and was placed on colchicine, ibuprofen and Prilosec ,subsequently patient complained of worsening chest pain, therefore a repeat troponin was obtained that is > 36,000, repeat EKG showed ST elevation in inferio lateral leads, bedside echocardiogram showed no significant wall motion abnormality or valvular disease, ddx myopericarditis, cardiac ischemia ,seen by dev manager he recommend to continue current treatment and transfer patient to [facility] for coronary CTA, patient remained hemodynamically stable received 1 dose of chewable aspirin 325 mg as well as IV Toradol with good pain relief, has been placed on Prilosec for GI prophylaxis. DVT prophylaxis:? Lovenox 40 mg daily Time Spent with Patient Time attestation: Total time managing care of this patient today ____ minutes. Discharge coordination time: Greater than 30 minutes Quality: Safe Use of Opioids Does Pt have an Active Cancer Diagnosis on the Problem List?: No Quality: Stroke Does the patient have a stroke diagnosis?: No Physical Exam Vital Signs: Vital Signs: Last Vital Signs Temp 97.9 F 10/21/22 06:21 Pulse 81 10/21/22 09:04 Resp 21 H 10/21/22 09:04 BP 140/88 H 10/21/22 09:04 Pulse Ox 96 10/21/22 09:04 O2 Del Method 10/21/22 09:04 BMI result Body Mass Index 28.4 Const: Other: General awake alert x3,lying in bed in no distress Anicteric sclera Neck supple, no JVD Regular rate and rhythm, S1-S2 heard Resp: Regular breath sounds bilaterally, no wheezing or crackles appreciated Abdomen soft nontender, no guarding, no rigidity, bowel sounds audible Neuro nonfocal Psych: Normal mood No pedal edema DS: Data Data Completed and Pending Labs on day of discharge: Laboratory Results - last 24 hr 10/20/22 10/20/22 10/20/22 22:41 22:41 22:41 WBC 9.2 RBC 4.74 Hgb 14.0 Hct 40.8 L MCV 86.1 MCH 29.5 MCHC 34.3 RDW 12.2 Plt Count 269 MPV 9.6 Immature Gran % (Auto) 0.3 Neut % (Auto) 69.2 Lymph % (Auto) 17.3 L [place] % (Auto) 12.2 H Eos % (Auto) 0.9 Baso % (Auto) 0.1 Lymph # (Auto) 1.6 [place] # (Auto) 1.1 Eos # (Auto) 0.1 Baso # (Auto) 0.0 Abs Immat Gran (auto) 0.03 Absolute Neuts (auto) 6.4 Absolute Nucleated RBC 0.000 Nucleated RBC % (auto) 0.0 ESR PT INR APTT Sodium 137 Potassium 4.5 Chloride 100 Carbon Dioxide 26 Anion Gap 16 BUN 13 Creatinine 0.84 Estim Creat Clear Calc 126.5 Estimated GFR > 60 Random Glucose 113 Calcium 9.0 Total Creatine Kinase 206 H Troponin I High Sens 1341.0 H* C-Reactive Protein 9.52 H Urine Color Urine Appearance Urine pH Ur Specific [place] Urine Protein Urine Glucose (UA) Urine Ketones Urine Blood Urine Nitrite Ur Leukocyte Esterase Urine RBC Urine WBC Ur Squamous Epith Cells Urine Bacteria Hyaline Casts Urine Opiates Screen Urine Fentanyl Screen Ur Barbiturates Screen Ur Phencyclidine Scrn Ur Amphetamines Screen U Benzodiazepines Scrn Urine Cocaine Screen U Marijuana (THC) Screen Influenza Type A (PCR) Influenza Type B (PCR) RSV RNA Qual (PCR) SARS-CoV-2 RNA (RT-PCR) 10/20/22 10/20/22 10/20/22 22:41 22:41 23:34 WBC RBC Hgb Hct MCV MCH MCHC RDW Plt Count MPV Immature Gran % (Auto) Neut % (Auto) Lymph % (Auto) [place] % (Auto) Eos % (Auto) Baso % (Auto) Lymph # (Auto) [place] # (Auto) Eos # (Auto) Baso # (Auto) Abs Immat Gran (auto) Absolute Neuts (auto) Absolute Nucleated RBC Nucleated RBC % (auto) ESR 13 PT 13.0 INR 1.1 APTT 33.4 Sodium Potassium Chloride Carbon Dioxide Anion Gap BUN Creatinine Estim Creat Clear Calc Estimated GFR Random Glucose Calcium Total Creatine Kinase Troponin I High Sens C-Reactive Protein Urine Color Urine Appearance Urine pH Ur Specific [place] Urine Protein Urine Glucose (UA) Urine Ketones Urine Blood Urine Nitrite Ur Leukocyte Esterase Urine RBC Urine WBC Ur Squamous Epith Cells Urine Bacteria Hyaline Casts Urine Opiates Screen Urine Fentanyl Screen Ur Barbiturates Screen Ur Phencyclidine Scrn Ur Amphetamines Screen U Benzodiazepines Scrn Urine Cocaine Screen U Marijuana (THC) Screen Influenza Type A (PCR) NEGATIVE Influenza Type B (PCR) NEGATIVE RSV RNA Qual (PCR) NEGATIVE SARS-CoV-2 RNA (RT-PCR) NEGATIVE 10/20/22 10/21/22 10/21/22 23:42 00:27 00:28 WBC RBC Hgb Hct MCV MCH MCHC RDW Plt Count MPV Immature Gran % (Auto) Neut % (Auto) Lymph % (Auto) [place] % (Auto) Eos % (Auto) Baso % (Auto) Lymph # (Auto) [place] # (Auto) Eos # (Auto) Baso # (Auto) Abs Immat Gran (auto) Absolute Neuts (auto) Absolute Nucleated RBC Nucleated RBC % (auto) ESR PT INR APTT Sodium Potassium Chloride Carbon Dioxide Anion Gap BUN Creatinine Estim Creat Clear Calc Estimated GFR Random Glucose Calcium Total Creatine Kinase Troponin I High Sens 2047.0 H* D C-Reactive Protein Urine Color Dark Yellow Urine Appearance Clear Urine pH 6.5 Ur Specific [place] >= 1.030 H Urine Protein 30 (1+) H Urine Glucose (UA) Negative Urine Ketones 15 Urine Blood Negative Urine Nitrite Negative Ur Leukocyte Esterase Negative Urine RBC 11-20 H Urine WBC 0-5 Ur Squamous Epith Cells 0-2 Urine Bacteria None Seen Hyaline Casts 0-2 Urine Opiates Screen Not Detected Urine Fentanyl Screen Not Detected Ur Barbiturates Screen Not Detected Ur Phencyclidine Scrn Not Detected Ur Amphetamines Screen Not Detected U Benzodiazepines Scrn Not Detected Urine Cocaine Screen Not Detected U Marijuana (THC) Screen POSITIVE H Influenza Type A (PCR) Influenza Type B (PCR) RSV RNA Qual (PCR) SARS-CoV-2 RNA (RT-PCR) 10/21/22 10/21/22 10/21/22 05:36 05:36 05:36 WBC 7.5 RBC 4.61 Hgb 13.5 L Hct 39.8 L MCV 86.3 MCH 29.3 MCHC 33.9 RDW 12.3 Plt Count 249 MPV 9.9 Immature Gran % (Auto) 0.3 Neut % (Auto) 57.9 Lymph % (Auto) 26.2 [place] % (Auto) 13.9 H Eos % (Auto) 1.6 Baso % (Auto) 0.1 Lymph # (Auto) 2.0 [place] # (Auto) 1.0 Eos # (Auto) 0.1 Baso # (Auto) 0.0 Abs Immat Gran (auto) 0.02 Absolute Neuts (auto) 4.3 Absolute Nucleated RBC 0.000 Nucleated RBC % (auto) 0.0 ESR PT INR APTT Sodium 138 Potassium 4.0 Chloride 101 Carbon Dioxide 27 Anion Gap 14 BUN 13 Creatinine 0.84 Estim Creat Clear Calc 125.3 Estimated GFR > 60 Random Glucose 97 Calcium 9.1 Total Creatine Kinase Troponin I High Sens > 3600.0 H* D C-Reactive Protein Urine Color Urine Appearance Urine pH Ur Specific [place] Urine Protein Urine Glucose (UA) Urine Ketones Urine Blood Urine Nitrite Ur Leukocyte Esterase Urine RBC Urine WBC Ur Squamous Epith Cells Urine Bacteria Hyaline Casts Urine Opiates Screen Urine Fentanyl Screen Ur Barbiturates Screen Ur Phencyclidine Scrn Ur Amphetamines Screen U Benzodiazepines Scrn Urine Cocaine Screen U Marijuana (THC) Screen Influenza Type A (PCR) Influenza Type B (PCR) RSV RNA Qual (PCR) SARS-CoV-2 RNA (RT-PCR) Discharge Plan Discharge Anticipated Discharge Date/Time: 10/21/22 10:03 Patient Disposition: Xfer Acute Care Hospital Discharge Diagnosis: Myopericarditis Chest pain Referrals: Jean Marie Romero MD [Primary Care Provider] - 1 Week Discharge Medications: New colchicine [Colcrys] 0.6 mg Tablet 0.6 mg PO BID Qty: 60 0RF ibuprofen 600 mg Tablet 600 mg PO Q8H Qty: 60 0RF enoxaparin 40 mg/0.4 mL Syringe 40 mg subcut DAILY@0600 Qty: 4 0RF omeprazole 20 mg Capsule,Delayed Release(Dr/Ec) 20 mg PO DAILY@0630 Qty: 30 0RF Discharge Orders: Discharge Order (Routine); Ordered 10/21/22 Ordered By: Sanket Mao Diet: npo Activity on Discharge: bedrest Stand Alone Forms: Patient Portal Discharge page Care Plan Goals: Chest pain times 24 hours constant dull pain with intermittent worsening, elevated troponin and EKG changes being transferred to [facility] for coronary CT Angiography and close cardiology follow-up Health Concerns: Not on home medications Plan of Treatment: Outpatient follow-up with primary care physician and with cardiology as recommended Assessment: As above
[2022-10-21] MEDS: Aspirin 81 MG TAB.CHEW 324 MG PO (10:20)
--- NOTE | 2022-10-21 10:25 | PC.NURSE ---
[facility] here to take pt to [facility]
== END 2022-10-21 11:00 | disposition short-term general hospital (02) ==
LOC: HO.ED 10-21 02:07 → HO.EDOVER 10-21 06:56
PROVIDERS: Admitting Provider Student in an Organized Health Care Education/Training Program; Emergency Provider Internal Medicine; PCP Internal Medicine; Visit Provider Hospitalist
DX: I31.9 Disease of pericardium, unspecified (principal); R07.9 Chest pain, unspecified; Z20.822 Contact with and (suspected) exposure to COVID-19
CPT/HCPCS: 0241U; 36415; 71275; 80048; 80307; 81001; 82550; 84484; 85025; 85610; 85652; 85730; 86140; 93005; 96374; 96376; 99222; 99285; J1885; Q9967